=== PATIENT | female | born 1975 | race Caucasian/White ===

== ENCOUNTER 2022-03-29 09:08 | Outpatient (CLI) | payer BC | END 2022-03-29 20:29 | disposition home or self-care (01) | LOC: SMA 09:08 | PROVIDERS: ATTEND Family Medicine Geriatric Medicine | DX: Z12.31 Encounter for screening mammogram for malignant neoplasm of breast (principal); N60.02 Solitary cyst of left breast; N60.41 Mammary duct ectasia of right breast | CPT/HCPCS: 76641; 77067 ==

== ENCOUNTER 2023-03-21 11:17 | Outpatient (CLI) | payer BC | END 2023-03-21 18:12 | disposition home or self-care (01) | LOC: SMA 11:17 | PROVIDERS: ATTEND Family Medicine | DX: Z12.39 Encounter for other screening for malignant neoplasm of breast (principal); N60.02 Solitary cyst of left breast; N60.01 Solitary cyst of right breast; R92.1 Mammographic calcification found on diagnostic imaging of breast | CPT/HCPCS: 76641; 77067 ==